=== PATIENT | female | born 2000 | race Two or more races ===

== ENCOUNTER 2023-03-02 17:10 | Emergency (ER) | payer BC ==
[~2023-03-02] VITALS: Ht 152.4 cm; Wt 63.5 kg
[2023-03-02 19:38] LABS: HEMATOCRIT 38.7 % (36.0-45.00); HEMOGLOBIN 12.3 g/dL (12.0-15.00); MEAN CELL VOLUME 81.5 fL (80.00-100.00); MEAN CORPUSCULAR HGB CONC 31.9 g/dl (32.0-36.0); PLATELET COUNT 391 K/uL (150-450); RED BLOOD COUNT 4.74 M/uL (4.00-6.00)
[2023-03-02 19:58] LABS: INR 1.04; PARTIAL THROMBOPLASTIN TIME 24.5 SECONDS (22.0-34.0); PROTHROMBIN TIME 10.9 SECONDS (9.0-11.5)
[2023-03-02 20:20] LABS: CALCIUM 8.9 mg/dL (8.5-10.1); CREATININE SERUM 0.72 mg/dL (0.55-1.02); GFR 98.69
[2023-03-02 21:29] LABS: PH,URINE 6.5 (5.0-8.0); URINE APPEARANCE Cloudy; URINE BILIRRUBIN Negative (NEGATIVE); URINE BLOOD Large; URINE COLOR Red; URINE GLUCOSE Negative (NEGATIVE); URINE LEUKOCYTE Moderate; URINE NITRATE Negative
[2023-03-02 21:31] LABS: URINE BACTERIA 1805.5 uL (0.0-1933); URINE EPITHELIAL CELLS 21.4 uL (0.0-38.8); URINE WBC 89.1 uL (0.0-23.2)
[2023-03-02 21:34] LABS: URINE PROTEIN 100 (NEGATIVE); URINE RBC > 10558.9 uL (0.0-20.8)
== END 2023-03-02 22:37 | disposition home or self-care (01) ==
LOC: ER 17:11 → EDBD 17:11 → ER 17:22
PROVIDERS: General Practice
DX: O03.9 Complete or unspecified spontaneous abortion without complication (principal)

== ENCOUNTER 2023-06-22 11:08 | Day surgery (SDC) | payer OTHER ==
[~2023-06-22] VITALS: Ht 152.4 cm; Wt 62.1 kg
[2023-06-22] MEDS ORDERED: PRENA1 TRUE CO1 EACH PO (12:06)
[2023-06-22 13:18] LABS: HEMATOCRIT 34.7 % (36.0-45.00); HEMOGLOBIN 11.6 g/dL (12.0-15.00); MEAN CELL VOLUME 80.5 fL (80.00-100.00); MEAN CORPUSCULAR HEMOGLOBIN 26.8 pg (27.00-32.0); MEAN CORPUSCULAR HGB CONC 33.3 g/dl (32.0-36.0); PLATELET COUNT 351 K/uL (150-450); RED BLOOD COUNT 4.31 M/uL (4.00-6.00)
[2023-06-22 13:57] LABS: CALCIUM 8.8 mg/dL (8.5-10.1); CREATININE SERUM 0.56 mg/dL (0.55-1.02); GFR 131.9; POTASSIUM 3.79 mEq/L (3.5-5.1)
[2023-06-22] MEDS ORDERED: RINGERS SOLUTION,LACTATED 1,000 ML IV SCH (15:45)
[2023-06-22 16:47] LABS: INR 0.98; PARTIAL THROMBOPLASTIN TIME 26.5 SECONDS (22.0-34.0); PROTHROMBIN TIME 10.3 SECONDS (9.0-11.5)
[2023-06-22] MEDS ORDERED: POVIDONE-IODINE 118 ML BOTT TOP ONE (21:30)
[2023-06-22] MEDS ORDERED: MORPHINE SULFATE 4 MG/ML VIAL IV PRN (21:45)
[2023-06-22] MEDS ORDERED: PROMETHAZINE HCL 50 MG/ML AMPUL IM PRN (21:45)
== END 2023-06-23 00:40 | disposition home or self-care (01) ==
LOC: ER 11:08 → CIR.AMB 16:07
PROVIDERS: General Practice; ATTEND Obstetrics & Gynecology
DX: O02.1 Missed abortion (principal); O72.2 Delayed and secondary postpartum hemorrhage